=== PATIENT | female | born 1980 | race Asian ===

== ENCOUNTER 2021-02-22 18:27 | Emergency (ER) | payer OTHER ==
[~2021-02-22] VITALS: Ht 157.5 cm; Wt 54.5 kg
[2021-02-22] MEDS ORDERED: diphenhydrAMINE 50 mg/ml inj IV ONE (20:05)
[2021-02-22] MEDS ORDERED: proCHLORperazine 10 MG/2 ml inj IV PRN (20:05)
[2021-02-22] MEDS ORDERED: normal saline 1000ml 1,000 ML IV ONE (20:05)
[2021-02-22] MEDS ORDERED: ketorolac trometh. 30mg/ml inj. IV ONE (20:05)
[2021-02-22 21:21] VITALS: BP 121/70
== END 2021-02-22 21:41 | disposition home or self-care (01) ==
LOC: ER 18:28
DX: G43.909 Migraine, unspecified, not intractable, without status migrainosus (principal); R11.0 Nausea; Z88.8 Allergy status to other drugs, medicaments and biological substances
CPT/HCPCS: 96361; 96374; 96375; 99284; J0780; J1200; J1885; J7030